=== PATIENT | female | born 1985 ===

== ENCOUNTER 2016-04-19 21:13 | Emergency (ER) | payer SELFPAY ==
[2016-04-19] MEDS ORDERED: IOPAMIDOL 370 (76%) 100 ML VIAL IV ONE (21:14)
[2016-04-19 23:13] LABS: URINE BILIRUBIN NEGATIVE (NEGATIVE); URINE BLOOD 1+ (NEGATIVE); URINE GLUCOSE (UA) NEGATIVE (NEGATIVE); URINE LEUKOCYTE ESTERASE TRACE (NEGATIVE); URINE NITRITE NEGATIVE (NEGATIVE); URINE PROTEIN NEGATIVE (NEGATIVE); URINE UROBILINOGEN NORMAL (0-1 mg/dl)
[2016-04-19 23:14] LABS: URINE APPEARANCE HAZY; URINE COLOR YELLOW
[2016-04-19 23:15] LABS: HCG,QUALITATIVE URINE NEGATIVE
[2016-04-19 23:36] LABS: URINE EPITHELIAL CELLS 15-20 /hpf
[2016-04-19 23:37] LABS: URINE BACTERIA RARE
[2016-04-20] MEDS ORDERED: ONDANSETRON 4 MG/2ML 2 ML VIAL ONE (00:06)
[2016-04-20 00:24] LABS: CALCIUM 9.5 mg/dL (8.6-10.3)
[2016-04-20] MEDS ORDERED: KETOROLAC TROMETHAMINE 15 MG/ML VIAL ONE (00:51)
[2016-04-20] MEDS ORDERED: CEFTRIAXONE 1 GRAM DUPLEX 50 ML IV ONE (02:34)
[2016-04-20] MEDS ORDERED: OXYCODONE HCL 5 MG TABLET ONE (02:34)
[2016-04-20] MEDS ORDERED: AZITHROMYCIN 250 MG TABLET ONE (02:34)
[2016-04-20] MEDS ORDERED: ACETAMINOPHEN 500 MG TABLET ONE (02:34)
--- NOTE | 2016-04-20 18:02 | CT ---
CTA CHEST FOR PE COMPARISON: None HISTORY: Mid back pain for the last 2 weeks. Elevated d-dimer. Technique: Intravenous injection 80 mL Isovue-370. Using a [employer] Aquilion [address] scanner, following a CT angiogram protocol, images obtained through the thorax. Under concurrent supervision and interpretation, requiring a separate 3-D workstation, the technologist created 3-D CT angiograms. An automated dose reduction technique was used to minimize patient radiation dose. Dose information: CTDIvol (mGy): 7.70, 156.70, 18.10 DLP(mGycm): 635.30 FINDINGS: Pulmonary arteries and veins: Excellent contrast opacification. No pulmonary embolism. Aorta: Normal Heart and coronary arteries: Normal. Lungs: In the left lower lobe, focus of airspace opacification/infiltrate. Trachea and bronchi: Normal. Mediastinum and devorah: Normal. Pleura and pericardium: Normal. Chest wall: Normal. Spine: Normal. Upper abdomen:Normal. 3-D CT angiogram: Normal. IMPRESSION: 1. CT pulmonary radiograph negative for pulmonary embolus. 2. Pneumonia in the posterior basal segment of the left lower lobe. 3. 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 Preliminary report by [employer] radiologist Sang Glez M.D. 04/20/2016 at 02:05
== END 2016-04-20 03:33 | disposition home or self-care (01) ==
LOC: ED 21:13
DX: J18.9 Pneumonia, unspecified organism (principal); R10.9 Unspecified abdominal pain
CPT/HCPCS: 85379; 81025; 80048; 81001; 71275; 96375 ×2; 99284 ×2; 96374; A9270 ×3; J1885; J2405; Q9967; J0696